=== PATIENT | female | born 1940 | race American Indian/Alaskan Native ===

== ENCOUNTER 2022-02-13 17:53 | Emergency (ER) | payer MEDICARE ==
--- NOTE | 2022-02-13 18:05 | Emergency Department Report ---
History of Present Illness - General Chief Complaint: Altered Mental Status Stated Complaint: ACC OVERDOSE Time Seen by Provider: 02/13/22 17:53 Source: EMS Mode of arrival: Stretcher Limitations: Altered Mental Status, Physical Limitation - History of Present Illness Initial Comments: Patient is a 73-year-old female that presents emergency room with complaints of accidental overdose. Patient brought in by EMS. EMS states the patient is on hospice and palliative care and the family accidentally gave too much morphine. The family then called EMS when she was having decreased level of consciousness. EMS gave the patient 2 mg of Narcan. Patient is more aroused. Patient is oriented x1. Patient is minimally verbal. Patient is currently on hospice for advanced Alzheimer's disease. Patient has a past medical history of Alzheimer's, breast cancer, hypertension,. MD Complaint: accidental overdose -: Sudden - Related Data Allergies Allergy/AdvReac Type Severity Reaction Status Date / Time No Known Allergies Allergy Unverified 02/13/22 18:13 ED Review of Systems ROS: Stated complaint: ACC OVERDOSE Other details as noted in HPI Comment: Unobtainable due to pts medical conditions ED Past Medical Hx - Past Medical History Previous Medical History?: Yes Hx Hypertension: Yes Hx CVA: Yes Hx Dementia: Yes - Surgical History Past Surgical History?: No - Family History Family history: no significant - Social History Smoking Status: Unknown if ever smoked Substance Use Type: None ED Physical Exam - General General appearance: in no apparent distress, lethargic, other (Patient is drowsy but easily arousable.) - Head Head exam: Present: atraumatic, normocephalic - Eye Eye exam: Present: normal appearance, PERRL Pupils: Present: normal accommodation - ENT ENT exam: Present: mucous membranes dry - Neck Neck exam: Present: normal inspection - Respiratory Respiratory exam: Present: normal lung sounds bilaterally. Absent: respiratory distress - Cardiovascular Cardiovascular Exam: Present: regular rate, normal rhythm. Absent: systolic murmur, diastolic murmur, rubs, gallop - GI/Abdominal GI/Abdominal exam: Present: soft, normal bowel sounds. Absent: distended, tenderness, guarding - Extremities Exam Extremities exam: Present: normal inspection - Back Exam Back exam: Present: normal inspection - Neurological Exam Neurological exam: Present: altered - Skin Skin exam: Present: warm, dry, intact, normal color. Absent: rash ED Course Vital Signs 02/13/22 02/13/22 02/13/22 17:53 18:04 18:15 Temperature 97.9 F Pulse Rate 105 H 106 H 103 H Respiratory 16 16 16 Rate Blood Pressure Blood Pressure 92/56 [Left] O2 Sat by Pulse 97 93 Oximetry 02/13/22 18:31 Temperature Pulse Rate 101 H Respiratory 15 Rate Blood Pressure 126/83 Blood Pressure [Left] O2 Sat by Pulse 94 Oximetry - Reevaluation(s) Reevaluation #1: Initial evaluation done. Patient minimally verbal. Patient oriented x1. Patient is lethargic but easily arousable. Patient's neurologic Baseline is unknown. 02/13/22 17:01 Reevaluation #2: I discussed the case with family. Family states the patient is a DNR and is planning on going back home on hospice. Patient's daughter states that she was not sure about the dosing and she accidentally gave her too much. Daughter states she understands the directions now. I discussed all results and clinical findings with patient. I discussed plan of care with patient. Patient agrees with plan of care. Patient is stable for discharge. Patient will be discharged home. Patient given discharge instructions. Patient voiced understanding of discharge instructions. 02/13/22 19:15 ED Medical Decision Making - Medical Decision Making Patient is an 81-year-old female that presents emergency room for accidental overdose. Patient's daughter accidentally missed dosed the patient's morphine. Patient brought in by EMS. Patient was given 2 mg of Narcan by EMS and became responsive. Patient has advanced dementia however is oriented x1. Patient is going to be discharged from the ER and back onto hospice. Patient not require any further emergency medical services. Patient is a DNR and hospice patient and does not require further investigation. I discussed this with the family and the family would like to take the patient home back onto hospice. - Differential Diagnosis Accidental overdose. Critical Care Time: Yes Critical care time in (mins) excluding proc time.: 35 Critical care attestation.: If time is entered above; I have spent that time in minutes in the direct care of this critically ill patient, excluding procedure time. Critical Care Time: 35 minutes ED Disposition Clinical Impression: Hospice care patient, Lethargy Accidental overdose Qualifiers: Encounter type: initial encounter Qualified Code(s): T50.901A - Poisoning by unspecified drugs, medicaments and biological substances, accidental (unintentional), initial encounter Disposition: 01 HOME / SELF CARE / HOMELESS Is pt being admited?: No Does the pt Need Aspirin: No Condition: Stable Instructions: Hospice, Palliative Care, Accidental Drug Poisoning, Adult Additional Instructions: Patient to follow-up with primary care in 2 to 3 days. Patient be discharged from the ER back onto hospice. Patient to rest. Patient to increase water. Patient to take Tylenol or ibuprofen as needed for pain. . Patient to continue hospice therapy. Patient to return to the ER if condition worsens, changes or new symptoms arise. Referrals: PRIMARY CARE, [Primary Care Provider] - 2-3 Days Time of Disposition: 19:34
[2022-02-14 02:12] VITALS: BP 120/72
== END 2022-02-14 02:00 | disposition home or self-care (01) ==
LOC: ED 17:53
DX: T40.2X1A Poisoning by other opioids, accidental (unintentional), initial encounter (principal); R53.83 Other fatigue; G30.9 Alzheimer's disease, unspecified; Z51.5 Encounter for palliative care; F02.80 Dementia in other diseases classified elsewhere, unspecified severity, without behavioral disturbance, psychotic disturbance, mood disturbance, and anxiety; I10 Essential (primary) hypertension; Z86.73 Personal history of transient ischemic attack (TIA), and cerebral infarction without residual deficits; Y92.89 Other specified places as the place of occurrence of the external cause
CPT/HCPCS: 99283